=== PATIENT | female | born 1990 | race Caucasian/White ===

== ENCOUNTER 2016-08-20 19:40 | Outpatient (CLI) | payer OTHER, MEDICAID | END 2016-08-20 19:41 | disposition home or self-care (01) | DX: R10.13 Epigastric pain (principal) ==

== ENCOUNTER 2016-08-27 19:43 | Outpatient (CLI) | payer MEDICAID, OTHER | END 2016-08-27 19:44 | disposition home or self-care (01) | DX: F32.9 Major depressive disorder, single episode, unspecified (principal) ==

== ENCOUNTER 2018-10-09 13:23 | Emergency (ER) | payer MEDICAID, OTHER ==
[2018-10-09] MEDS ORDERED: LORazepam 2 MG/ML VIAL IM STA (13:29)
--- NOTE | 2018-10-09 13:32 | ED Physician Documentation ---
History of Present Illness - Stated complaint Stated Complaint: ALLERGIC REACTION - History obtained from History obtained from: Patient, Friend - History of Present Illness Timing: Today (28-year-old woman with history of fish allergy. She was exposed to fish at work but did not eat anything. She started to feel itchy and then became very short of breath and panicky. She took 2 Benadryl prior to arrival.) Review of Systems Ten Systems: 10 systems reviewed and negative Constitutional: denies: Fever, Chills Nose: denies: Rhinorrhea / runny nose Cardiac: denies: Chest pain / pressure, Palpitations Respiratory: reports: Dyspnea. denies: Cough PD PAST MEDICAL HISTORY - Past Surgical History Past Surgical History: No - Present Medications Home Medications: Ambulatory Orders Medication Instructions Recorded Confirmed Bcp 1 tab ORAL DAILY 07/18/15 07/18/15 HYDROcod/ACETAM 5/325 [[place] 5/325] 1 - 2 ea PO Q6H PRN #20 tablet 07/18/15 EPINEPHrine [Epinephrine] 0.3 mg IJ ONCE PRN #2 auto.injct 10/09/18 - Allergies Allergies/Adverse Reactions: Allergies Allergy/AdvReac Type Severity Reaction Status Date / Time No Known Drug Allergies Allergy Verified 07/18/15 14:35 - Social History Does the pt smoke?: No Smoking Status: Never smoker Does the pt drink ETOH?: No Does the pt have substance abuse?: No - Immunizations Immunizations are current?: Yes PD ED PE NORMAL - Vitals Vital signs reviewed: Yes - General General: Alert and oriented X 3, Other (She is clearly hyperventilating with carpopedal spasms, there is no oral pharyngeal edema. Her lungs are clear.) - HEENT HEENT: Pharynx benign - Neck Neck: Supple, no meningeal sign, No bony TTP - Cardiac Cardiac: RRR, No murmur - Respiratory Respiratory: No respiratory distress, Clear bilaterally - Abdomen Abdomen: Non tender - Derm Derm: No rash - Neuro Neuro: Alert and oriented X 3, Normal speech Results - Vitals Vitals: Vital Signs - 24 hr 10/09/18 13:30 Temperature 36.8 C Heart Rate 115 H Respiratory 26 H Rate Blood Pressure 126/84 H O2 Saturation 98 Oxygen O2 Source Room air PD MEDICAL DECISION MAKING - ED course ED course: She is a history of fish allergy, however on exam there is really no evidence of anaphylaxis but she is panicking, hyperventilating, and has carpopedal spasms. On reexamination at 2 PM her symptoms have resolved, there was no rash or angioe shanelle or wheezing. Departure - Departure Disposition: 01 Home, Self Care Clinical Impression: Panic attack as reaction to stress Allergic reaction Qualifiers: Encounter type: initial encounter Qualified Code(s): T78.40XA - Allergy, unspecified, initial encounter Condition: Good Record reviewed to determine appropriate education?: Yes Instructions: ED Allergic React Food Prescriptions: EPINEPHrine [Epinephrine] 0.3 mg IJ ONCE PRN #2 auto.injct PRN Reason: Allergy Symptoms Comments: Call your doctor to arrange a follow-up appointment, make the next available appointment. In the interim, return anytime if worse or if new symptoms develop.
[2018-10-09 14:25] VITALS: BP 136/88
== END 2018-10-09 14:24 | disposition home or self-care (01) ==
LOC: ED 13:23
DX: F43.0 Acute stress reaction (principal); T78.1XXA Other adverse food reactions, not elsewhere classified, initial encounter; X58.XXXA Exposure to other specified factors, initial encounter
CPT/HCPCS: 96372; 99283; J2060

== ENCOUNTER 2019-07-27 09:23 | Outpatient (CLI) | payer MEDICAID ==
[2019-07-27 11:46] LABS: BASOPHILS # (AUTO) 0.1 10^3/uL (0.0-0.1); BASOPHILS % (AUTO) 0.7 %; EOSINOPHILS # (AUTO) 0.4 10^3/uL (0.0-0.7); EOSINOPHILS % (AUTO) 5.1 %; HGB - HEMOGLOBIN 13.1 g/dL (12.0-16.0); LYMPHOCYTES # (AUTO) 2.2 10^3/uL (1.5-3.5); LYMPHOCYTES % (AUTO) 30.4 %; MEAN CORPUSCULAR HEMOGLOBIN 27.6 pg (27.0-31.0); MEAN CORPUSCULAR HGB CONC 32.1 g/dL (32.0-36.0); MEAN CORPUSCULAR VOLUME 85.9 fL (81.0-99.0); MEAN PLATELET VOLUME 10.8 fL (7.9-10.8); MONOCYTES # (AUTO) 0.4 10^3/uL (0.0-1.0); MONOCYTES % (AUTO) 6.2 %; NEUTROPHILS # (AUTO) 4.1 10^3/uL (1.5-6.6); NEUTROPHILS % (AUTO) 57.2 %; PLT - PLATELET COUNT 243 10^3/uL (130-450); RED BLOOD COUNT 4.75 10^6/uL (4.20-5.40); RED CELL DISTRIBUTION WIDTH 13.2 % (12.0-15.0); WHITE BLOOD COUNT 7.1 x10^3/uL (4.8-10.8)
[2019-07-27 11:59] LABS: ALBUMIN 4.3 g/dL (3.2-5.5); ALBUMIN/GLOBULIN RATIO 1.2 (1.0-2.2); BILIRUBIN,TOTAL 0.8 mg/dL (0.2-1.0); CALCIUM 8.8 mg/dL (8.5-10.3); CREATININE 0.6 mg/dL (0.4-1.0); MAGNESIUM 2.1 mg/dL (1.7-2.8); PHOSPHORUS 2.9 mg/dL (2.5-4.6); TOTAL PROTEIN 7.8 g/dL (6.7-8.2)
== END 2019-07-27 23:59 | disposition home or self-care (01) ==
LOC: LAB.WCP 09:23
PROVIDERS: ATTEND Physician Assistant Medical
DX: R00.2 Palpitations (principal)
CPT/HCPCS: 36415; 80053; 83735; 84100; 84443; 85025

== ENCOUNTER 2019-09-12 17:12 | Outpatient (CLI) | payer MEDICAID | END 2019-09-12 17:13 | disposition critical access hospital (66) | LOC: EMS 17:12 | PROVIDERS: ATTEND Surgery | DX: R51 Headache (principal); R42 Dizziness and giddiness | CPT/HCPCS: A0425; A0429; A0999 ==

== ENCOUNTER 2019-09-12 17:33 | Emergency (ER) | payer MEDICAID ==
[2019-09-12] MEDS ORDERED: KETOROLAC 30 MG/ML VIAL IVP STA (17:42)
[2019-09-12] MEDS ORDERED: diphenhydrAMINE INJ 50 MG/ML VIAL IVP STA (17:42)
[2019-09-12] MEDS ORDERED: PROCHLORPERAZINE 10 MG/2 ML VIAL IVP STA (17:42)
--- NOTE | 2019-09-12 17:45 | ED Physician Documentation ---
PD HPI HEADACHE - Stated complaint Stated Complaint: NATION - Chief complaint Chief Complaint: Neuro - History obtained from History obtained from: Patient, EMS - History of Present Illness Pain level max: 8 Pain level now: 6 Location: Back Quality: Throbbing, Aching Associated symptoms: Nausea, Vomiting (X1). No: Fever, Stiff neck, Weakness, Numbness, Syncope, Seizure, Eye pain, Vision changes Improved by: Rest Worsened by: Light, Noise Contributing factors: No: Anticoagulated, Possible carbon monoxide, Hypertension, Recent illness, Trauma - Additional information Additional information: 29-year-old female states that she has had an occipital headache since June. She is seen her doctor several times for this, she states that her doctor tells her to just take ibuprofen. No focal neurological deficits. No trauma. There is a family history of migraines. Headache became worse today and she vomited x1. At that point her family called 911 because of the single episode of emesis. Patient does not have any chest pain or shortness of breath. No abdominal pain. Denies any possibility of . She is not breast-feeding or trying to become . 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 Psych: None Musculoskeletal: None Derm: None - Past Surgical History Past Surgical History: No - Present Medications Home Medications: Ambulatory Orders Medication Instructions Recorded Confirmed Butalb/Acetaminophen/Caffeine 1 cap PO Q6H PRN #10 capsule 09/12/19 [Fioricet 50-300-40 mg Capsule] Diltiazem HCl [Cardizem] 120 mg PO DAILY 09/12/19 09/12/19 - Allergies Allergies/Adverse Reactions: Allergies Allergy/AdvReac Type Severity Reaction Status Date / Time ciprofloxacin [From Cipro] Allergy Unknown Verified 09/12/19 17:38 escitalopram [From Lexapro] Allergy Unknown Verified 09/12/19 17:38 sulfamethoxazole Allergy Unknown Verified 09/12/19 17:38 [From Bactrim] trimethoprim [From Bactrim] Allergy Unknown Verified 09/12/19 17:38 - Social History Does the pt smoke?: No Smoking Status: Never smoker Does the pt drink ETOH?: No Does the pt have substance abuse?: No - Immunizations Immunizations are current?: Yes PD ED PE NORMAL - Vitals Vital signs reviewed: Yes - General General: Alert and oriented X 3, No acute distress, Well developed/nourished - HEENT HEENT: Atraumatic, PERRL, EOMI, Ears normal, Moist mucous membranes, Pharynx benign, Other (No papilledema) - Neck Neck: Supple, no meningeal sign - Cardiac Cardiac: RRR - Respiratory Respiratory: No respiratory distress, Clear bilaterally - Abdomen Abdomen: Soft, Non tender, Non distended - Derm Derm: Warm and dry - Extremities Extremities: No edema - Neuro Neuro: Alert and oriented X 3, document design specialist 2-12 intact, No motor deficit, No sensory deficit, Normal speech Eye Opening: Spontaneous Motor: Obeys Commands Verbal: Oriented GCS Score: 15 - Psych Psych: Normal mood, Normal affect Results - Vitals Vitals: Vital Signs - 24 hr 09/12/19 09/12/19 09/12/19 17:33 17:44 19:22 Temperature 36.5 C Heart Rate 119 H 115 H 82 Respiratory 20 25 H 25 H Rate Blood Pressure 150/130 H 163/85 H 121/81 H O2 Saturation 100 98 99 Oxygen O2 Source Room air - Labs Labs: Laboratory Tests 09/12/19 18:40 Urine Color YELLOW Urine Clarity CLEAR Urine pH 6.5 Ur Specific [place] 1.020 Urine Protein TRACE Urine Glucose (UA) NEGATIVE Urine Ketones NEGATIVE Urine Occult Blood NEGATIVE Urine Nitrite NEGATIVE Urine Bilirubin NEGATIVE Urine Urobilinogen 0.2 (NORMAL) Ur Leukocyte Esterase NEGATIVE Ur Microscopic Review NOT INDICATED Urine Culture Comments NOT INDICATED Urine HCG, Qual NEGATIVE - Rads (name of study) Head CT Radiology: Prelim report reviewed, EMP read contemporaneously, See rad report (No acute abnormality) PD MEDICAL DECISION MAKING - ED course Complexity details: reviewed results, re-evaluated patient, considered differential, d/w patient, d/w family ED course: Patient with a headache for the past 2 months. No evidence of intracranial abnormality on head CT. Headache resolved with Toradol, Compazine, Benadryl IV. Patient is well-appearing, nontoxic. No neurological deficits. Normal gait. Patient counseled regarding signs and symptoms for which I believe and urgent re-evaluation would be necessary. Patient with good understanding of and agreement to plan and is comfortable going home at this time This document was made in part using voice recognition software. While efforts are made to proofread this document, sound alike and grammatical errors may occur. Departure - Departure Disposition: 01 Home, Self Care Clinical Impression: Headache Qualifiers: Headache type: unspecified Headache chronicity pattern: acute headache Intractability: not intractable Qualified Code(s): R51 - Headache Condition: Good Instructions: ED Cephalgia Unspecified Follow-Up: Lashawn Rivera PA-C [Primary Care Provider] - Within 1 week Prescriptions: Butalb/Acetaminophen/Caffeine [Fioricet 50-300-40 mg Capsule] 1 cap PO Q6H PRN #10 capsule PRN Reason: headache Comments: You can use the medication as needed for headaches. Return if you worsen. Your head CT does not show any acute abnormalities today. Discharge Date/Time: 09/12/19 19:23
--- NOTE | 2019-09-12 18:47 | CT Report ---
Reason: new headaches x 2 months Procedure Date: 09/12/2019 Accession Number: [id number] / [id number] Procedure: CT - HEAD WO CPT Code: Final Report FULL RESULT: EXAM: CT HEAD EXAM DATE: 09/12/2019 06:00 PM. CLINICAL HISTORY: New headaches x 2 months. COMPARISON: BRAIN W/O 10/05/2014 1:21 PM. TECHNIQUE: Multiaxial CT images were obtained from the foramen magnum to the vertex. Reformats: Sagittal and coronal. IV contrast: None. In accordance with CT protocol optimization, one or more of the following dose reduction techniques were utilized for this exam: automated exposure control, adjustment of mA and/or KV based on patient size, or use of iterative reconstructive technique. FINDINGS: Parenchyma: No intraparenchymal hemorrhage. No evidence of mass, midline shift, or CT findings of infarction. Xiong-white differentiation is distinct. Extraaxial Spaces: Normal for age. No subdural or epidural collections identified. Ventricles: Normal in size and position. Sinuses and Orbits: Imaged paranasal sinuses, orbits, and mastoids show no significant abnormality. Bones: No evidence of fracture or calvarial defect. Other: None. IMPRESSION: Normal head CT. RADIA
[2019-09-12 18:50] LABS: BILIRUBIN,URINE NEGATIVE (NEGATIVE); GLUCOSE, URINE (UA) NEGATIVE (NEGATIVE); KETONES,URINE (UA) NEGATIVE (NEGATIVE); LEUKOCYTE ESTERASE, URINE NEGATIVE (NEGATIVE); NITRITE,URINE NEGATIVE (NEGATIVE); OCCULT BLOOD,URINE NEGATIVE (NEGATIVE); PH,URINE 6.5 PH (5.0-7.5); PROTEIN,URINE TRACE mg/dL (NEGATIVE); UROBILINOGEN,URINE 0.2 (NORMAL) E.U./dL (NORMAL)
[2019-09-12 18:51] LABS: CLARITY,URINE CLEAR (CLEAR)
[2019-09-12 18:52] LABS: HCG UR QUAL NEGATIVE
[2019-09-12 19:23] VITALS: BP 121/81
== END 2019-09-12 19:23 | disposition home or self-care (01) ==
LOC: EDUNIT# → ED 17:33
DX: R51 Headache (principal)
CPT/HCPCS: 70450; 81003; 81025; 96374; 99284; J1200; 81001; 87086

== ENCOUNTER 2019-09-29 11:30 | Outpatient (CLI) | payer MEDICAID | END 2019-09-29 11:31 | disposition home or self-care (01) | LOC: LAB.WCP 11:30 | PROVIDERS: ATTEND Physician Assistant Medical | DX: Z31.5 Encounter for procreative genetic counseling (principal) | CPT/HCPCS: 36415; 81220; 81599 ==

== ENCOUNTER 2019-12-29 17:29 | Emergency (ER) | payer MEDICAID ==
[2019-12-29 17:38] VITALS: BP 146/81
--- NOTE | 2019-12-29 18:13 | ED Physician Documentation ---
PD HPI LOWER EXT INJURY - Stated complaint Stated Complaint: R FOOT PAIN - Chief complaint Chief Complaint: Trauma Ext - History obtained from History obtained from: Patient - History of Present Illness PD HPI LOW EXT INJURY LOCATION: Right, Foot Type of injury: Fall Where injury occurred: Home Timing - onset: How many weeks ago (2) Timing - details: Constant Pain level max: 7 Pain level now: 2 Improved by: Rest, Ice, Immobilization Worsened by: Moving, Palpating Associated symptoms: Numbness (for 5 minutes after the fall) Similar symptoms before: Has not had sx before Recently seen: Not recently seen - Additional information Additional information: 29 year old female here with distal right foot pain following a fall at home2 weeks ago. reports descending stairs, missing the last 2, and striking her foot hard. reprots that she immediately had some numbnes sof the distal foot that lasted for about 5 minutes and then abates. 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 : None Psych: None Musculoskeletal: None Derm: None - Past Surgical History Past Surgical History: No - Present Medications Home Medications: Ambulatory Orders Medication Instructions Recorded Confirmed Metoprolol Succinate 25 mg PO DAILY 12/29/19 12/29/19 - Allergies Allergies/Adverse Reactions: Allergies Allergy/AdvReac Type Severity Reaction Status Date / Time ciprofloxacin [From Cipro] Allergy Unknown Verified 12/29/19 17:34 escitalopram [From Lexapro] Allergy Unknown Verified 12/29/19 17:34 sulfamethoxazole Allergy Unknown Verified 12/29/19 17:34 [From Bactrim] trimethoprim [From Bactrim] Allergy Unknown Verified 12/29/19 17:34 - Social History Does the pt smoke?: No Smoking Status: Never smoker Does the pt drink ETOH?: No Does the pt have substance abuse?: No - Immunizations Immunizations are current?: Yes PD ED PE NORMAL - General General: Alert and oriented X 3, No acute distress, Well developed/nourished - HEENT HEENT: Atraumatic - Neck Neck: No adenopathy - Cardiac Cardiac: RRR - Respiratory Respiratory: No respiratory distress, Clear bilaterally - Extremities Extremities: Other (mild tenderness of the distal right foot at the MCP joint of great toe. no swelling, erythema. no pain of metatarsals otherwise. FUll ROM of ankle. normal dorsi and plantar flexion, inversion/eversion) - Neuro Neuro: Alert and oriented X 3, options advisor 2-12 intact Results - Vitals Vitals: Vital Signs - 24 hr 12/29/19 17:36 Temperature 36.5 C Heart Rate 80 Respiratory 15 Rate Blood Pressure 146/81 H O2 Saturation 100 Oxygen O2 Source Room air - Rads (name of study) foot xray right Radiology: Final report received (negative for acute pathology) PD MEDICAL DECISION MAKING - ED course Complexity details: reviewed results, re-evaluated patient, d/w patient ED course: 29 year old female here with 2 weeks of distal right foot pain following a fall. Exam reassuring without obvious bony pathology, normal gait - xray negative for acute fx. consider contusion vs sprain - pt given dejon wrap which improved symptoms - advised Ice, motrin/tylenol and f/u with pcp Departure - Departure Disposition: 01 Home, Self Care Clinical Impression: Right foot pain Condition: Good Record reviewed to determine appropriate education?: Yes Instructions: ED Sprain Foot Follow-Up: Lashawn Rivera PA-C [Primary Care Provider] - Comments: Becka, the xray of your foot is normal. Nothing is broken. Lets wear the dejon bandage when out of bed. Try wearing good supporting shoes and take motrin/tylenol for pain. Return if not improved or worsening
--- NOTE | 2019-12-29 18:15 | XRAY Report ---
Reason: Trauma Procedure Date: 12/29/2019 Accession Number: [id number] / [id number] Procedure: XR - Foot 3 View RT CPT Code: Final Report FULL RESULT: PROCEDURE: Foot 3 View RT INDICATIONS: Trauma TECHNIQUE: 3 views of the foot were acquired. COMPARISON: None FINDINGS: Bones: No fractures or dislocations. No suspicious bony lesions. Soft tissues: No tibiotalar joint effusion. Achilles tendon appears normal. IMPRESSION: No fracture. No osseous lesion. If there is continued clinical concern for pathology, then repeat plain film radiographs (7-10 days) or advanced imaging (CT, MR, bone scan) should be considered for further evaluation. Reviewed by: Catie Nunez MD, PhD on 12/29/2019 6:13 PM PDT Approved by: Catie Nunez MD, PhD on 12/29/2019 6:13 PM PDT Station ID: [id number]
== END 2019-12-29 19:05 | disposition home or self-care (01) ==
LOC: ED 17:29
DX: M79.671 Pain in right foot (principal); R20.0 Anesthesia of skin; W10.9XXA Fall (on) (from) unspecified stairs and steps, initial encounter; Y92.009 Unspecified place in unspecified non-institutional (private) residence as the place of occurrence of the external cause
CPT/HCPCS: 99282; 99284

== ENCOUNTER 2020-03-14 07:44 | Outpatient (CLI) | payer MEDICAID | END 2020-03-14 07:45 | disposition home or self-care (01) | LOC: DI 07:44 | PROVIDERS: ATTEND Physician Assistant Medical | DX: R00.0 Tachycardia, unspecified (principal) | CPT/HCPCS: 93306 ==

== ENCOUNTER 2020-03-14 07:45 | Outpatient (CLI) | payer MEDICAID ==
--- NOTE | 2020-03-14 10:26 | MRI Report ---
PROCEDURE: Foot RT W/O INDICATIONS: RIGHT TOE PAIN TECHNIQUE: Noncontrast coronal and sagittal T1 spin echo and STIR; axial T1 spin echo and T2 fast spin echo with fat saturation through the right foot. COMPARISON: None. FINDINGS: Image quality: Excellent. Bones: The visualized bone marrow demonstrates normal signal on all sequences. The overlying cortex appears intact. No fractures lines or intra-osseous lesions. Minimal first MTP joint degeneration. Soft tissues: Small amount of fluid between the first and second metatarsal heads raising possibility of bursitis. IMPRESSION: Mild first-second intermetatarsal bursitis No evidence of stress fracture Reviewed by: Alberto Lo MD on 03/14/2020 10:25 AM PDT Approved by: Alberto Lo MD on 03/14/2020 10:25 AM PDT Station ID: [id number]
== END 2020-03-14 07:46 | disposition home or self-care (01) ==
LOC: DI 07:45
PROVIDERS: ATTEND Physician Assistant Medical
DX: M77.51 Other enthesopathy of right foot and ankle (principal); M79.674 Pain in right toe(s); R00.0 Tachycardia, unspecified
CPT/HCPCS: 93306

== ENCOUNTER 2020-09-09 16:47 | Emergency (ER) | payer MEDICAID ==
[2020-09-09] MEDS ORDERED: SILVER NITRATE APPLICATOR TOP STA (17:08)
--- NOTE | 2020-09-09 17:12 | ED Physician Documentation ---
History of Present Illness - Stated complaint Stated Complaint: BLOODY NOSE - Chief complaint Chief Complaint: Heent - Additonal information Additional information: 30-year-old female presents the emergency department for evaluation of left-s ided epistaxis. Began about 3 hours prior to arrival. Patient denies any falls or trauma. She has been using tissue paper but has been unable to get the bleeding to stop. She denies anticoagulation or NSAID use. Does not use any nasal sprays. She reports that when she was a child and in her teens she used to get nosebleeds with the very hot weather. However with recent changes in weather [place] that [place] the cause of this nosebleed. She other tobin appears well. Denies any prescribed medications. No tobacco or alcohol use. 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 : None Psych: None Musculoskeletal: None Derm: None - Past Surgical History Past Surgical History: No - Present Medications Home Medications: Ambulatory Orders Medication Instructions Recorded Confirmed No Known Home Medications 09/09/20 09/09/20 - Allergies Allergies/Adverse Reactions: Allergies Allergy/AdvReac Type Severity Reaction Status Date / Time ciprofloxacin [From Cipro] Allergy Unknown Verified 09/09/20 16:57 escitalopram [From Lexapro] Allergy Unknown Verified 09/09/20 16:57 sulfamethoxazole Allergy Unknown Verified 09/09/20 16:57 [From Bactrim] trimethoprim [From Bactrim] Allergy Unknown Verified 09/09/20 16:57 - Social History Does the pt smoke?: No Smoking Status: Never smoker Does the pt drink ETOH?: No Does the pt have substance abuse?: No - Immunizations Immunizations are current?: Yes PD ED PE NORMAL - General General: Alert and oriented X 3, No acute distress, Well developed/nourished - HEENT HEENT: PERRL, Ears normal, Other (No bleeding seen in posterior oropharynx. Limited nasal speculum exam reveals friable vessels on the anterior nares of the left nose bilaterally. Small amount of bleeding seen.) - Neck Neck: Supple, no meningeal sign, No adenopathy - Cardiac Cardiac: RRR, No murmur - Respiratory Respiratory: No respiratory distress, Clear bilaterally - Abdomen Abdomen: Normal bowel sounds, Soft Results - Vitals Vitals: Vital Signs - 24 hr 09/09/20 16:54 Temperature 36.7 C Heart Rate 127 H Respiratory 16 Rate Blood Pressure 153/96 H O2 Saturation 99 Oxygen O2 Source Room air Procedures - Epistaxis Site: Left, Anterior Preparation: Clamp / pressure applied Treatment: Silver Nitrate Other: Observed - no bleeding, Pt tolerated well, O2 sat WNL PD MEDICAL DECISION MAKING - ED course Complexity details: reviewed results, re-evaluated patient, d/w patient ED course: 30-year-old female brought to the emergency department for evaluation of left anterior epistaxis. She had tried for about 2 hours At home to get the bleeding to stop. Therefore she came to the emergency department after initial exam tissue was removed from the nose with a large clot. Limited nasal anoscopy reveals moderate amount of bleeding friable vessels on both sides of the left anterior nares. After being observed for 5 minutes no further bleeding was seen however given the cold weather and the difficulty to get the bleeding to stop at home we did proceed with chemical cauterization using silver nitrate. No further bleeding observed. Routine care of epistaxis at home including Afrin and a nasal clamp given. Emergent return precautions discussed Departure - Departure Disposition: 01 Home, Self Care Clinical Impression: Anterior epistaxis Condition: Stable Record reviewed to determine appropriate education?: Yes Instructions: Nosebleed Comments: Nereida the bleeding in your left nares was very very anterior. We did apply a chemical to the nose called silver nitrate. This should chemically cauterize those blood vessels that were giving you fits. If you develop a similar nosebleed at home please use the nasal clamp. Apply direct pressure for 20 to 30 minutes if bleeding persists despite that come to the emergency department. Another treatment method for nosebleeds is using Afrin nasal spray on gauze tubing. If at any point you feel that you have worsening nosebleed, feel faint dizzy or have syncopal episodes please return to the ER for second look
[2020-09-09 17:22] VITALS: BP 140/110
== END 2020-09-09 17:46 | disposition home or self-care (01) ==
LOC: ED 16:47
DX: R04.0 Epistaxis (principal)
CPT/HCPCS: 30901; 99281; 99282

== ENCOUNTER 2020-12-28 19:38 | Emergency (ER) | payer MEDICAID ==
[2020-12-28] MEDS ORDERED: IBUPROFEN 600 MG TABLET PO STA (20:06)
--- NOTE | 2020-12-28 20:06 | ED Physician Documentation ---
History of Present Illness - Stated complaint Stated Complaint: LT TOE INJ - Chief complaint Chief Complaint: Ext Problem - Additonal information Additional information: 30-year-old female presents to the emergency department for evaluation of Left foot and toe pain after her toes got caught under a door this morning at home. She hyper flexed the ring and middle toe towards her head. She has had swelling and pain in these toes since. There is a very superficial contusion on both of these toes as well. Review of Systems Constitutional: reports: Reviewed and negative Ears: reports: Reviewed and negative Nose: reports: Reviewed and negative Throat: reports: Reviewed and negative Cardiac: reports: Reviewed and negative Respiratory: reports: Reviewed and negative GI: reports: Reviewed and negative : reports: Reviewed and negative Skin: reports: Abrasion (s) (Left index and middle toe) Musculoskeletal: reports: Extremity pain (Left toes) PD PAST MEDICAL HISTORY - Past Medical History Past Medical History: Yes Cardiovascular: Other Neuro: Head injury, Headaches Endocrine/Autoimmune: None GI: None NUT SIFTER: None : None Psych: None Musculoskeletal: None Derm: None - Past Surgical History Past Surgical History: No - Present Medications Home Medications: Ambulatory Orders Medication Instructions Recorded Confirmed Loratadine/Pseudoephedrine 1 tab PO DAILY 12/28/20 12/28/20 [Claritin-D 24 Hour Tablet] - Allergies Allergies/Adverse Reactions: Allergies Allergy/AdvReac Type Severity Reaction Status Date / Time ciprofloxacin [From Cipro] Allergy Unknown Verified 12/28/20 19:47 escitalopram [From Lexapro] Allergy Unknown Verified 12/28/20 19:47 sulfamethoxazole Allergy Unknown Verified 12/28/20 19:47 [From Bactrim] trimethoprim [From Bactrim] Allergy Unknown Verified 12/28/20 19:47 - Social History Does the pt smoke?: No Smoking Status: Never smoker Does the pt drink ETOH?: No Does the pt have substance abuse?: No - Immunizations Immunizations are current?: Yes - POLST Patient has POLST: No PD ED PE EXPANDED - Extremities Extremities: Left foot (Swelling and ecchymosis of the left index toe and left middle toe at the PIP joint. Limited flexion secondary to pain. No deformity. 2+ DP pulse. Patient able to bear nearly full weight on the left foot.) Results - Vitals Vitals: Vital Signs - 24 hr 12/28/20 12/28/20 19:45 19:48 Temperature 36.9 C 36.9 C Heart Rate 87 87 Respiratory 15 15 Rate Blood Pressure 147/90 H 147/90 H O2 Saturation 99 99 Oxygen O2 Source Room air - Rads (name of study) left foot Radiology: EMP read indepedently (No acute fracture or dislocation noted) PD MEDICAL DECISION MAKING - ED course Complexity details: reviewed results, re-evaluated patient, d/w patient, d/w family ED course: 30-year-old female presents the emergency department for evaluation of left foot index and middle toe pain after getting the toes caught under a door at home. She has obvious contusion and bruising to the toes. Reassuringly x-ray does not reveal any obvious fracture. Routine wound care and return precautions were discussed. Departure - Departure Disposition: 01 Home, Self Care Clinical Impression: Contusion of lesser toe of left foot without damage to nail Qualifiers: Encounter type: initial encounter Qualified Code(s): S90.122A - Contusion of left lesser toe(s) without damage to nail, initial encounter Condition: Stable Record reviewed to determine appropriate education?: Yes Instructions: ED Contusion Lower Extr Ch Comments: Becka you are seen in the emergency department for pain in your left index and middle toe. You do have a fair amount of bruising which suggest a contusion. We did do an x-ray of the toe and as discussed there are no findings to suggest a broken bone. Most contusions will heal over 1 to 2 weeks. I do recommend wearing open toed shoes. Icing the toes for 10 minutes 2-3 times a day can be helpful. I would also recommend taking Tylenol or ibuprofen [id number] for any discomfort.
--- NOTE | 2020-12-28 20:14 | XRAY Report ---
PROCEDURE: Foot 3 View LT INDICATIONS: PAIN/SWELLING/BRUISING TECHNIQUE: 3 views of the foot were acquired. COMPARISON: None FINDINGS: Bones: No fractures or dislocations. No suspicious bony lesions. Soft tissues: No tibiotalar joint effusion. Achilles tendon appears normal. IMPRESSION: No acute fracture. No osseous lesion. If symptoms and/or clinical suspicion for pathology continue, f urther assessment with repeat plain films, or advanced imaging (e.g., CT, MRI, or bone scan) is recom mended for further assessment. Reviewed by: Maribel Romero MD on 12/28/2020 8:13 PM PDT Approved by: Maribel Romero MD on 12/28/2020 8:13 PM PDT Station ID: [id number]
[2020-12-28 20:18] VITALS: BP 138/88
== END 2020-12-28 20:17 | disposition home or self-care (01) ==
LOC: ED 19:38
DX: S90.122A Contusion of left lesser toe(s) without damage to nail, initial encounter (principal); W22.09XA Striking against other stationary object, initial encounter; Y92.009 Unspecified place in unspecified non-institutional (private) residence as the place of occurrence of the external cause
CPT/HCPCS: 73630; 99281; 99283; A9270

== ENCOUNTER 2021-02-21 08:00 | Outpatient (CLI) | payer MEDICAID ==
[2021-02-21 11:57] LABS: BASOPHILS # (AUTO) 0.1 10^3/uL (0.0-0.1); BASOPHILS % (AUTO) 1.2 %; EOSINOPHILS # (AUTO) 2.3 10^3/uL (0.0-0.7); EOSINOPHILS % (AUTO) 27.2 %; HCT - HEMATOCRIT 36.9 % (37.0-47.0); LYMPHOCYTES # (AUTO) 2.7 10^3/uL (1.5-3.5); LYMPHOCYTES % (AUTO) 32.7 %; MEAN CORPUSCULAR HEMOGLOBIN 24.1 pg (27.0-31.0); MEAN CORPUSCULAR HGB CONC 29.8 g/dL (32.0-36.0); MEAN CORPUSCULAR VOLUME 80.7 fL (81.0-99.0); MEAN PLATELET VOLUME 10.7 fL (7.9-10.8); MONOCYTES # (AUTO) 0.4 10^3/uL (0.0-1.0); MONOCYTES % (AUTO) 4.2 %; NEUTROPHILS # (AUTO) 2.8 10^3/uL (1.5-6.6); NEUTROPHILS % (AUTO) 34.2 %; PLT - PLATELET COUNT 317 10^3/uL (130-450); RED BLOOD COUNT 4.57 10^6/uL (4.20-5.40); RED CELL DISTRIBUTION WIDTH 16.8 % (12.0-15.0); WHITE BLOOD COUNT 8.3 x10^3/uL (4.8-10.8)
[2021-02-21 12:24] LABS: ALBUMIN 4.2 g/dL (3.2-5.5); ALBUMIN/GLOBULIN RATIO 1.4 (1.0-2.2); ALKALINE PHOSPHATASE 58 IU/L (42-121); ALT ALANINE AMINOTRANSFERASE 15 IU/L (10-60); AST ASPARTATE AMINOTRANSFERASE 21 IU/L (10-42); BILIRUBIN,TOTAL 0.5 mg/dL (0.2-1.0); BUN - BLOOD UREA NITROGEN 16 mg/dL (6-20); CALCIUM 9.1 mg/dL (8.5-10.3); CARBON DIOXIDE - CO2 27 mmol/L (21-32); CHLORIDE 105 mmol/L (101-111); CHOL/HDL RATIO 4.9 (<4.4); CHOLESTEROL 214 mg/dL; CREATININE 0.9 mg/dL (0.4-1.0); GFR - MDRD 74 (>89); GLUCOSE 103 mg/dL (70-100); HDL CHOLESTEROL 44 mg/dL; LDL CHOLESTEROL,CALCULATED 149 mg/dL; LDL/HDL RATIO 3.4 (<4.4); SODIUM 140 mmol/L (135-145); TOTAL PROTEIN 7.1 g/dL (6.7-8.2); TRIGLYCERIDES 107 mg/dL; VLDL CHOLESTEROL 21 mg/dL
[2021-02-21 12:25] LABS: THYROID STIMULATING HORMONE 3.45 uIU/mL (0.34-5.60)
[2021-02-21 12:31] LABS: PLATELET ESTIMATE, MANUAL NORMAL (130-450,000) (NORMAL); PLATELET MORPHOLOGY NORMAL APPEARANCE (NORMAL); RBC MORPHOLOGY (MULTIPLE) NORMAL APPEARANCE (NORMAL); SLIDE REVIEW? Indicated
== END 2021-02-21 23:59 | disposition home or self-care (01) ==
LOC: LAB.WCP 08:00
PROVIDERS: ATTEND Family Medicine
DX: R00.0 Tachycardia, unspecified (principal); N92.6 Irregular menstruation, unspecified; R00.2 Palpitations
CPT/HCPCS: 36415; 80053; 80061; 83721; 84443; 85025

== ENCOUNTER 2021-08-22 08:00 | Outpatient (CLI) | payer MEDICAID | END 2021-08-22 23:59 | LOC: LAB 08:00 | PROVIDERS: ATTEND Physician Assistant | DX: U07.1 COVID-19 (principal) ==

== ENCOUNTER 2021-08-31 11:56 | Emergency (ER) | payer MEDICAID ==
[2021-08-31] MEDS ORDERED: SODIUM CHLORIDE 0.9% 1,000 ML IV STA (12:15)
[2021-08-31] MEDS ORDERED: ONDANSETRON 4 MG/2 ML VIAL IVP STA (12:15)
--- NOTE | 2021-08-31 12:22 | ED Physician Documentation ---
History of Present Illness - Stated complaint Stated Complaint: C+ VOMITING - Additonal information Additional information: 31-year-old female presents emergency department for evaluation of nausea and vomiting in the setting of COVID-19 infection. She tested positive on . Initially with the symptoms she had nausea and vomiting for a few days that resolved until it began again about 2 days ago. She states she has been unable to keep anything down. She has some generalized belly pain but nonfocal which she mostly associates with vomiting episodes. Denies fevers, cough dysuria. There has been no diarrhea. Denies possibility of . Denies any pertinent past surgical history. Past medical history is most significant for tachycardia for which she takes metoprolol. 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 Review of Systems Constitutional: denies: Fever, Chills Ears: reports: Reviewed and negative Cardiac: reports: Reviewed and negative Respiratory: reports: Reviewed and negative GI: reports: Abdominal Pain, Nausea, Vomiting. 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 : None Psych: None Musculoskeletal: None Derm: None - Past Surgical History Past Surgical History: No - Present Medications Home Medications: Ambulatory Orders Medication Instructions Recorded Confirmed Loratadine/Pseudoephedrine 1 tab PO DAILY 12/28/20 12/28/20 [Claritin-D 24 Hour Tablet] Ondansetron Odt [Zofran] 4 mg TL Q6H PRN #10 tablet 08/31/21 - Allergies Allergies/Adverse Reactions: Allergies Allergy/AdvReac Type Severity Reaction Status Date / Time ciprofloxacin [From Cipro] Allergy Unknown Verified 08/31/21 12:12 escitalopram [From Lexapro] Allergy Unknown Verified 08/31/21 12:12 sulfamethoxazole Allergy Unknown Verified 08/31/21 12:12 [From Bactrim] trimethoprim [From Bactrim] Allergy Unknown Verified 08/31/21 12:12 - Social History Does the pt smoke?: No Smoking Status: Never smoker Does the pt drink ETOH?: No Does the pt have substance abuse?: No - Immunizations Immunizations are current?: Yes - POLST Patient has POLST: No PD ED PE NORMAL - General General: Alert and oriented X 3, No acute distress, Well developed/nourished - HEENT HEENT: Atraumatic, Moist mucous membranes - Neck Neck: Supple, no meningeal sign, No adenopathy - Cardiac Cardiac: RRR, No murmur - Respiratory Respiratory: No respiratory distress, Clear bilaterally - Abdomen Abdomen: Normal bowel sounds, Soft, Non tender (Unable to elicit any abdominal pain or tenderness with deep or light palpation. No percussion tenderness.) - Back Back: No CVA TTP, No spinal TTP - Derm Derm: Normal color, Warm and dry - Extremities Extremities: No deformity, No tenderness to palpate, Normal ROM s pain - Neuro Neuro: Alert and oriented X 3, firmware architect 2-12 intact Eye Opening: Spontaneous Motor: Obeys Commands Verbal: Oriented GCS Score: 15 Results - Vitals Vitals: Vital Signs - 24 hr 08/31/21 08/31/21 12:13 12:16 Temperature 37.2 C Heart Rate 94 88 Respiratory 18 18 Rate Blood Pressure 139/113 H 138/111 H O2 Saturation 100 100 Oxygen O2 Source Room air - Labs Labs: Laboratory Tests 08/31/21 08/31/21 08/31/21 12:30 12:30 12:30 WBC 8.3 RBC 5.11 Hgb 14.6 Hct 44.3 MCV 86.7 MCH 28.6 MCHC 33.0 RDW 13.2 Plt Count 222 MPV 11.2 H Neut # (Auto) 5.4 Lymph # (Auto) 2.0 Iron # (Auto) 0.6 Eos # (Auto) 0.2 Baso # (Auto) 0.0 Absolute Nucleated RBC 0.00 Nucleated RBC % 0.0 Manual Slide Review Indicated Platelet Estimate NORMAL (130-450,000) Platelet Morphology NORMAL APPEARANCE RBC Morph Micro Appear NORMAL APPEARANCE Sodium 139 Potassium 3.7 Chloride 102 Carbon Dioxide 25 Anion Gap 12.0 BUN 19 Creatinine 1.0 Estimated GFR (MDRD) 65 L Glucose 93 Calcium 9.0 Total Bilirubin 0.8 AST 94 H ALT 78 H Alkaline Phosphatase 65 Total Protein 8.3 H Albumin 4.5 Globulin 3.8 Albumin/Globulin Ratio 1.2 Lipase 38 Serum HCG, Qual NEGATIVE PD MEDICAL DECISION MAKING - ED course Complexity details: reviewed results, re-evaluated patient, considered diffe rential, d/w patient ED course: 31-year-old female presents emergency department for evaluation of nausea vomiting. She was diagnosed with Covid on 22 August initially had some vomiting. That resolved but it began again about 2 to 3 days ago. States she has been unable to keep anything down now for 24 hours. On presentation she appears remarkably well. Unremarkable vitals without fever. No abdominal tenderness was elicited. Screening labs unremarkable with the exception of mildly elevated LFTs. Given lack of abdominal tenderness or labs c/w obstruction will defer any imaging. Patient is advised to have these LFTs reevaluated with her primary care provider in about 2 weeks. Patient was given IV fluids here in the emergency department as well as Zofran. Following this she is tolerating sips of clear liquids and has not vomited during her ER stay. Patient denies possibility of as she is not sexually active and was unable to provide a urine sample while here in the ER. Emergent return precautions were discussed for worsening symptoms or failure symptoms to resolve. Departure - Departure Disposition: 01 Home, Self Care Clinical Impression: COVID-19, Elevated LFTs Nausea and vomiting Qualifiers: Vomiting type: unspecified Qualified Code(s): R11.2 - Nausea with vomiting, unspecified Condition: Stable Record reviewed to determine appropriate education?: Yes Instructions: ED Nausea Vomiting Prescriptions: Ondansetron Odt [Zofran] 4 mg TL Q6H PRN #10 tablet PRN Reason: Nausea / Vomiting Comments: Becka you were seen in the emergency department today for nausea and vomiting in the setting of Covid infection. Gastrointestinal symptoms are very common with the omicron variant. Today in the emergency department you were given some IV fluids as well as Zofran. Following this you are able to keep clear liquids down. I am sending a prescription for some Zofran a nausea medicine to the [facility] in [place]. Over the next 24 hours I recommend that you take 1 tablet under the tongue every 6-8 hours. Frequent sips of clear liquids will be helpful. Your screening labs today did not show any worrisome findings with the exception of mildly elevated liver function test. This can be a common finding in people who have been unwell recently. I recommend that you follow-up with your primary care doctor in about 2 weeks to have your LFTs reevaluated. If despite taking the Zofran your symptoms do not improve then you should return immediately to the emergency department.
[2021-08-31 12:41] LABS: BASOPHILS % (AUTO) 0.5 %; EOSINOPHILS # (AUTO) 0.2 10^3/uL (0.0-0.7); EOSINOPHILS % (AUTO) 2.7 %; HCT - HEMATOCRIT 44.3 % (37.0-47.0); HGB - HEMOGLOBIN 14.6 g/dL (12.0-16.0); LYMPHOCYTES % (AUTO) 24.5 %; MEAN CORPUSCULAR HEMOGLOBIN 28.6 pg (27.0-31.0); MEAN CORPUSCULAR VOLUME 86.7 fL (81.0-99.0); MEAN PLATELET VOLUME 11.2 fL (7.9-10.8); MONOCYTES # (AUTO) 0.6 10^3/uL (0.0-1.0); MONOCYTES % (AUTO) 6.7 %; NEUTROPHILS # (AUTO) 5.4 10^3/uL (1.5-6.6); NEUTROPHILS % (AUTO) 65.2 %; PLT - PLATELET COUNT 222 10^3/uL (130-450); RED BLOOD COUNT 5.11 10^6/uL (4.20-5.40); RED CELL DISTRIBUTION WIDTH 13.2 % (12.0-15.0); WHITE BLOOD COUNT 8.3 x10^3/uL (4.8-10.8)
[2021-08-31 12:47] LABS: SLIDE REVIEW? Indicated
[2021-08-31 12:52] LABS: ALBUMIN 4.5 g/dL (3.2-5.5); ALBUMIN/GLOBULIN RATIO 1.2 (1.0-2.2); BILIRUBIN,TOTAL 0.8 mg/dL (0.2-1.0); POTASSIUM 3.7 mmol/L (3.5-5.0); TOTAL PROTEIN 8.3 g/dL (6.7-8.2)
[2021-08-31 13:00] LABS: HCG,QUALITATIVE BLOOD NEGATIVE
[2021-08-31 13:07] LABS: RBC MORPHOLOGY (MULTIPLE) NORMAL APPEARANCE (NORMAL)
[2021-08-31 13:08] LABS: PLATELET ESTIMATE, MANUAL NORMAL (130-450,000) (NORMAL); PLATELET MORPHOLOGY NORMAL APPEARANCE (NORMAL)
[2021-08-31 14:46] VITALS: BP 128/81
== END 2021-08-31 14:44 | disposition home or self-care (01) ==
LOC: ED 11:56
DX: U07.1 COVID-19 (principal); R11.2 Nausea with vomiting, unspecified; R79.89 Other specified abnormal findings of blood chemistry
CPT/HCPCS: 36415; 80053; 81001; 81003; 83690; 84703; 85025; 87086; 96374; 99284

== ENCOUNTER 2021-09-19 08:57 | Outpatient (CLI) | payer MEDICAID ==
[2021-09-19 12:31] LABS: ALBUMIN 4.3 g/dL (3.2-5.5); ALBUMIN/GLOBULIN RATIO 1.3 (1.0-2.2); BILIRUBIN,TOTAL 0.9 mg/dL (0.2-1.0); CALCIUM 9.1 mg/dL (8.5-10.3); POTASSIUM 3.7 mmol/L (3.5-5.0); TOTAL PROTEIN 7.6 g/dL (6.7-8.2)
== END 2021-09-19 08:58 | disposition home or self-care (01) ==
LOC: LAB.N 08:57
PROVIDERS: ATTEND Physician Assistant Medical
DX: R74.8 Abnormal levels of other serum enzymes (principal)
CPT/HCPCS: 36415; 80053

== ENCOUNTER 2021-09-20 12:14 | Outpatient (CLI) | payer MEDICAID ==
[2021-09-20 18:51] LABS: BASOPHILS % (AUTO) 0.6 %; EOSINOPHILS # (AUTO) 0.5 10^3/uL (0.0-0.7); EOSINOPHILS % (AUTO) 9.5 %; HCT - HEMATOCRIT 40.2 % (37.0-47.0); LYMPHOCYTES # (AUTO) 1.9 10^3/uL (1.5-3.5); LYMPHOCYTES % (AUTO) 38.2 %; MEAN CORPUSCULAR HEMOGLOBIN 28.3 pg (27.0-31.0); MEAN CORPUSCULAR HGB CONC 32.3 g/dL (32.0-36.0); MEAN CORPUSCULAR VOLUME 87.4 fL (81.0-99.0); MONOCYTES # (AUTO) 0.3 10^3/uL (0.0-1.0); MONOCYTES % (AUTO) 6.5 %; NEUTROPHILS # (AUTO) 2.2 10^3/uL (1.5-6.6); PLT - PLATELET COUNT 209 10^3/uL (130-450); RED CELL DISTRIBUTION WIDTH 13.5 % (12.0-15.0)
[2021-09-20 19:08] LABS: ALBUMIN 4.3 g/dL (3.2-5.5); ALBUMIN/GLOBULIN RATIO 1.3 (1.0-2.2); BILIRUBIN,TOTAL 0.6 mg/dL (0.2-1.0); CALCIUM 9.1 mg/dL (8.5-10.3); CREATININE 0.8 mg/dL (0.4-1.0); POTASSIUM 4.3 mmol/L (3.5-5.0); TOTAL PROTEIN 7.5 g/dL (6.7-8.2)
== END 2021-09-20 12:15 | disposition home or self-care (01) ==
LOC: LAB.N 12:14
PROVIDERS: ATTEND Nurse Practitioner
DX: R10.11 Right upper quadrant pain (principal)
CPT/HCPCS: 36415; 80053; 82150; 83690; 85025

== ENCOUNTER 2022-03-26 08:00 | Outpatient (CLI) | payer MEDICAID ==
--- NOTE | 2022-03-26 20:28 | XRAY Report ---
PROCEDURE: Foot 2 View RT INDICATIONS: R FOOT PX TECHNIQUE: 2 views of the foot were acquired. COMPARISON: 03/14/2020 MRI of right foot. FINDINGS: Bones: No fractures or dislocations. No suspicious bony lesions. Soft tissues: No tibiotalar joint effusion. Achilles tendon appears normal. IMPRESSION: No finding to explain patient's symptoms. Reviewed by: Je Zaragoza MD on 03/26/2022 8:26 PM PDT Approved by: Je Zaragoza MD on 03/26/2022 8:26 PM PDT Station ID: [id number]
== END 2022-03-26 23:59 | disposition home or self-care (01) ==
LOC: DI.N 08:00
PROVIDERS: ATTEND Nurse Practitioner
DX: M79.671 Pain in right foot (principal)

== ENCOUNTER 2022-05-21 12:55 | Outpatient (CLI) | payer MEDICAID ==
[2022-05-21 17:44] LABS: BASOPHILS # (AUTO) 0.1 10^3/uL (0.0-0.1); BASOPHILS % (AUTO) 1.2 %; EOSINOPHILS # (AUTO) 0.4 10^3/uL (0.0-0.7); EOSINOPHILS % (AUTO) 6.6 %; HCT - HEMATOCRIT 39.9 % (37.0-47.0); LYMPHOCYTES # (AUTO) 2.5 10^3/uL (1.5-3.5); LYMPHOCYTES % (AUTO) 36.9 %; MEAN CORPUSCULAR HEMOGLOBIN 28.1 pg (27.0-31.0); MEAN CORPUSCULAR HGB CONC 32.6 g/dL (32.0-36.0); MEAN CORPUSCULAR VOLUME 86.4 fL (81.0-99.0); MEAN PLATELET VOLUME 10.9 fL (7.9-10.8); MONOCYTES # (AUTO) 0.4 10^3/uL (0.0-1.0); NEUTROPHILS # (AUTO) 3.3 10^3/uL (1.5-6.6); PLT - PLATELET COUNT 264 10^3/uL (130-450); RED BLOOD COUNT 4.62 10^6/uL (4.20-5.40); RED CELL DISTRIBUTION WIDTH 12.2 % (12.0-15.0); WHITE BLOOD COUNT 6.7 x10^3/uL (4.8-10.8)
[2022-05-21 18:04] LABS: ALBUMIN 4.4 g/dL (3.2-5.5); ALBUMIN/GLOBULIN RATIO 1.3 (1.0-2.2); ALKALINE PHOSPHATASE 53 IU/L (42-121); ALT ALANINE AMINOTRANSFERASE 19 IU/L (10-60); AST ASPARTATE AMINOTRANSFERASE 21 IU/L (10-42); BILIRUBIN,TOTAL 0.5 mg/dL (0.2-1.0); BUN - BLOOD UREA NITROGEN 17 mg/dL (6-20); CALCIUM 9.3 mg/dL (8.5-10.3); CARBON DIOXIDE - CO2 26 mmol/L (21-32); CHLORIDE 104 mmol/L (101-111); CHOL/HDL RATIO 5.1 (<4.4); CHOLESTEROL 218 mg/dL; CREATININE 0.9 mg/dL (0.4-1.0); GFR - MDRD 74 (>89); GLUCOSE 85 mg/dL (70-100); HDL CHOLESTEROL 43 mg/dL; LDL CHOLESTEROL,CALCULATED 147 mg/dL; LDL/HDL RATIO 3.4 (<4.4); SODIUM 139 mmol/L (135-145); TOTAL PROTEIN 7.8 g/dL (6.7-8.2); TRIGLYCERIDES 140 mg/dL; VLDL CHOLESTEROL 28 mg/dL
[2022-05-21 18:10] LABS: THYROID STIMULATING HORMONE 2.38 uIU/mL (0.34-5.60)
[2022-05-21 18:16] LABS: PROLACTIN 11.28 ng/mL
[2022-05-22 06:11] LABS: PROGESTERONE 6.7 ng/mL (.)
== END 2022-05-21 12:56 | disposition home or self-care (01) ==
LOC: LAB.N 12:55
PROVIDERS: ATTEND Physician Assistant Medical
DX: Z00.00 Encounter for general adult medical examination without abnormal findings (principal)
CPT/HCPCS: 36415; 80053; 80061; 82670; 83721; 84144; 84146; 84443; 85025

== ENCOUNTER 2023-11-30 13:51 | Emergency (ER) | payer MEDICAID, OTHER ==
[2023-11-30 14:05] VITALS: BP 146/79; O2SAT 100
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
[2023-11-30] MEDS: MECLIZINE 12.5 MG TABLET PO STA (14:23)
== END 2023-11-30 14:26 | disposition home or self-care (01) ==
LOC: ED 13:51
DX: F07.81 Postconcussional syndrome (principal); R51.9 Headache, unspecified; V43.62XA Car passenger injured in collision with other type car in traffic accident, initial encounter; Y92.410 Unspecified street and highway as the place of occurrence of the external cause
CPT/HCPCS: 99283; A9270

== ENCOUNTER 2023-12-15 18:55 | Emergency (ER) | payer OTHER ==
[2023-12-15 19:07] VITALS: O2SAT 100
--- NOTE | 2023-12-15 20:52 | ED Physician Documentation ---
PD HPI HEADACHE - Stated complaint Stated Complaint: NATION/VOMIT - Chief complaint Chief Complaint: Neuro - History obtained from History obtained from: Patient, Family - History of Present Illness Location: Global Quality: Throbbing, Aching Associated symptoms: Nausea, Vomiting. No: Fever, Stiff neck, Weakness, Numbness, Syncope, Seizure, Eye pain Improved by: Rest, Dark room Worsened by: Light, Noise - Additional information Additional information: 33-year-old female presents to the emergency department stating that she has a head today. This been ongoing for the past several days. She states that she has "recovering from a concussion". She states the headache is holocranial, gradual in onset, dull, aching, throbbing. Does have a history of migraines. Took Fioricet earlier today without relief. Has had nausea and vomiting today as well. Worse with light, sound, noise. Denies any possibility of . 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 : None HEENT: None Psych: Depression, Anxiety Musculoskeletal: None Derm: None - Past Surgical History Past Surgical History: Yes HEENT: Tonsil/Adenoidectomy - Present Medications Home Medications: Ambulatory Orders Medication Instructions Recorded Confirmed Loratadine/Pseudoephedrine 1 tab PO DAILY 12/28/20 11/30/23 [Claritin-D 24 Hour Tablet] Meclizine HCl 25 mg PO Q6H PRN #15 tab 11/30/23 Metoprolol Succinate [Toprol Xl] 1 tab PO DAILY 11/30/23 11/30/23 Sertraline [Zoloft] 1 tab PO DAILY 11/30/23 11/30/23 - Allergies Allergies/Adverse Reactions: Allergies Allergy/AdvReac Type Severity Reaction Status Date / Time ciprofloxacin [From Cipro] Allergy Unknown Verified 12/15/23 19:01 escitalopram [From Lexapro] Allergy Unknown Verified 12/15/23 19:01 sulfamethoxazole Allergy Unknown Verified 12/15/23 19:01 [From Bactrim] trimethoprim [From Bactrim] Allergy Unknown Verified 12/15/23 19:01 - Social History Does the pt smoke?: No Smoking Status: Never smoker Does the pt drink ETOH?: No Does the pt have substance abuse?: No - Immunizations Immunizations are current?: Yes - POLST Patient has POLST: No PD ED PE NORMAL - Vitals Vital signs reviewed: Yes - General General: Alert and oriented X 3, No acute distress, Well developed/nourished - HEENT HEENT: PERRL, EOMI, Moist mucous membranes, Pharynx benign - Neck Neck: Supple, no meningeal sign, No bony TTP - Cardiac Cardiac: RRR, Strong equal pulses - Respiratory Respiratory: No respiratory distress, Clear bilaterally - Abdomen Abdomen: Soft, Non tender, Non distended - Derm Derm: Warm and dry - Extremities Extremities: No deformity - Neuro Neuro: Alert and oriented X 3, catering driver 2-12 intact, No motor deficit, No sensory deficit, Normal speech Eye Opening: Spontaneous Motor: Obeys Commands Verbal: Oriented GCS Score: 15 - Psych Psych: Normal mood, Normal affect Results - Vitals Vitals: Vital Signs - 24 hr 12/15/23 12/15/23 19:01 22:11 Temperature 36.8 C Heart Rate 97 65 Respiratory 16 16 Rate Blood Pressure 154/89 H 121/90 H O2 Saturation 100 100 Oxygen O2 Source Room air PD Medical Decision Making - ED course Complexity details: re-evaluated patient, considered differential, d/w patient ED course: Patient with what appears to be a migraine headache versus postconcussive headache. Given Toradol, Benadryl and droperidol. Headache is feeling much improved. She was also given a liter of fluid. She states that she feels better and would like to try going home at this time. She has other migraine medications at home. She will return if she worsens. No focal neurological deficits. No indication for emergent neuroimaging. Patient counseled regarding signs and symptoms for which I believe and urgent re-evaluation would be necessary. Patient with good understanding of and agreement to plan and is comfortable going home at this time This document was made in part using voice recognition software. While efforts are made to proofread this document, sound alike and grammatical errors may occur. Departure - Departure Disposition: 01 Home, Self Care Clinical Impression: Migraine Qualifiers: Migraine type: unspecified Status migrainosus presence: without status migrainosus Intractability: not intractable Qualified Code(s): G43.909 - Migraine, unspecified, not intractable, without status migrainosus Condition: Good Instructions: ED Headache Migraine Follow-Up: Lashawn Rivera PA-C [Primary Care Provider] - Comments: Please follow-up with your doctor for further care. Please return if you worsen. Go home and rest tonight. Forms: PCP List Discharge Date/Time: 12/15/23 22:11
[2023-12-15] MEDS: DROPERIDOL 5 MG/2 ML VIAL IVP STA (21:15)
[2023-12-15] MEDS: KETOROLAC 30 MG/ML VIAL IVP STA (21:15)
[2023-12-15] MEDS: diphenhydrAMINE INJ 50 MG/ML VIAL IVP STA (21:16)
[2023-12-15] MEDS: SODIUM CHLORIDE 0.9% 1,000 ML IV STA (21:16)
[2023-12-15 22:17] VITALS: BP 121/90
== END 2023-12-15 22:11 | disposition home or self-care (01) ==
LOC: ED 18:55
DX: G43.909 Migraine, unspecified, not intractable, without status migrainosus (principal)
CPT/HCPCS: 96374; 96375; 99283; 99284; J1200